=== PATIENT | male | born 1950 | race Caucasian/White ===

== ENCOUNTER 2022-05-06 14:46 | Emergency (ER) | payer SELFPAY ==
[~2022-05-06] VITALS: Ht 185.4 cm; Wt 120.0 kg
[2022-05-06 15:37] LABS: BASOPHILS % (AUTO) 0.3 % (0-1); EOSINOPHILS # (AUTO) 0.1 X10'3 (0-0.9); EOSINOPHILS % (AUTO) 1.1 % (0-6); HEMATOCRIT 26.4 % (42.0-52.0); HEMOGLOBIN 8.5 g/dl (14.0-17.9); LYMPHOCYTES # (AUTO) 0.6 X10'3 (1.1-4.8); LYMPHOCYTES % (AUTO) 6.6 % (21-51); MEAN CORPUSCULAR HEMOGLOBIN 28.1 PG (27.0-31.0); MEAN CORPUSCULAR HGB CONC 32.2 g/dL (33.0-36.5); MEAN CORPUSCULAR VOLUME 87.2 FL (78-98); MEAN PLATELET VOLUME 8.6 FL (7.4-10.4); MONOCYTES # (AUTO) 0.6 X10'3 (0-0.9); MONOCYTES % (AUTO) 5.6 % (2-12); NEUTROPHILS # (AUTO) 8.5 X10'3 (1.8-7.7); NEUTROPHILS % (AUTO) 86.4 % (42-75); PLATELET COUNT 192 X10'3 (140-440); RED BLOOD COUNT 3.02 X10'6 (4.70-6.10); RED CELL DISTRIBUTION WIDTH 18.6 % (11.5-14.5); WHITE BLOOD COUNT 9.8 X10'3 (4.5-11.0)
--- NOTE | 2022-05-06 15:38 | NUR ---
taken to [place]
[2022-05-06 15:50] LABS: ANION GAP 10 (8-16); BLOOD UREA NITROGEN 48 MG/DL (7-18); CHLORIDE 110 MMOL/L (99-107); CREATININE 2.42 MG/DL (0.60-1.10); GLUCOSE 241 MG/DL (70-104); POTASSIUM 3.2 MMOL/L (3.5-5.1); SODIUM 147 MMOL/L (135-145); TOTAL CARBON DIOXIDE 27.3 MMOL/L (24-32)
[2022-05-06 15:51] LABS: ALANINE AMINOTRANSFERASE 11 U/L (12-78); ALBUMIN 2.4 G/DL (3.4-5.0); ALBUMIN/GLOBULIN RATIO 0.6 (1.1-1.5); ALKALINE PHOSPHATASE 70 IU/L (46-116); ASPARTATE AMINO TRANSFERASE 14 U/L (10-37); BILIRUBIN,TOTAL 0.4 MG/DL (0.1-1.0); BUN/CREATININE RATIO 19.8 (5.4-32.0); CALCIUM 8.9 MG/DL (8.5-10.1); TOTAL PROTEIN 6.3 G/DL (6.4-8.2); eGFR 27 ML/MIN
[2022-05-06 16:29] LABS: ACANTHOCYTES FEW; ANISOCYTOSIS 2+; BURR CELLS FEW; ELLIPTOCYTES FEW; HYPOCHROMASIA 1+; PLATELET ESTIMATE NORMAL; POLYCHROMASIA FEW
[2022-05-06 17:46] VITALS: BP 167/86
--- NOTE | 2022-05-06 18:24 | NUR ---
report given to kecia at this time
== END 2022-05-06 18:15 | disposition home or self-care (01) ==
LOC: ER 14:47
DX: I50.9 Heart failure, unspecified (principal); T81.9XXA Unspecified complication of procedure, initial encounter; J18.9 Pneumonia, unspecified organism; Z98.890 Other specified postprocedural states
CPT/HCPCS: 36415; 71045; 71250; 74176; 80053; 83605; 83735; 83880; 84145; 84484; 85008; 85025; 87040; 93005; 93306; 99285